=== PATIENT | female | born 1985 | race Caucasian/White ===

== ENCOUNTER 2018-03-16 13:11 | Emergency (ER) | payer BC, OTHER ==
[2018-03-16] MEDS: ACETAMINOPHEN 500 MG TAB PO (13:59)
== END 2018-03-16 14:07 | disposition home or self-care (01) ==
LOC: FTE 13:11
DX: S09.90XA Unspecified injury of head, initial encounter (principal); W18.2XXA Fall in (into) shower or empty bathtub, initial encounter; Y92.9 Unspecified place or not applicable
CPT/HCPCS: 99283; Z7502